=== PATIENT | male | born 1965 | race Caucasian/White ===

== ENCOUNTER 2019-08-18 11:19 | Emergency (ER) | payer OTHER ==
--- NOTE | 2019-08-18 13:12 | EDM.PDOC ---
ED HPI GENERAL MEDICAL PROBLEM - General Chief Complaint: Lower Extremity Injury/Pain Stated Complaint: HURT BOTH ANKLES Time Seen by Provider: 08/18/19 13:07 Source of Information: Reports: Patient History Limitations: Reports: No Limitations - History of Present Illness INITIAL COMMENTS - FREE TEXT/NARRATIVE: This 54 year old is admitted to the ED with a chief complaint of injuring his left ankle and foot while getting out of a truck. He states that because he has been shifting the weight to his right leg his right ankle also. He denies injury to his right ankle of foot. He denies any other symptoms at this time. Onset: Gradual Location: Reports: Lower Extremity, Left Severity: Mild Bilateral Ankles Pain Score (Numeric/FACES): 8 - Related Data Allergies Allergy/AdvReac Type Severity Reaction Status Date / Time No Known Allergies Allergy Verified 08/18/19 12:38 Home Meds: Home Meds Ibuprofen [Motrin] 600 mg PO Q8H PRN 5 Days #15 tab 08/18/19 [Rx] Past Medical History Gastrointestinal History: Reports: Cirrhosis Social & Family History - Family History Family Medical History: Unobtainable - Tobacco Use Smoking Status *Q: Never Smoker - Recreational Drug Use Recreational Drug Use: No Review of Systems - Review of Systems Review Of Systems: See Below Constitutional: Reports: No Symptoms Eyes: Reports: No Symptoms Ears: Reports: No Symptoms Nose: Reports: No Symptoms Mouth/Throat: Reports: No Symptoms Respiratory: Reports: No Symptoms Cardiovascular: Reports: No Symptoms GI/Abdominal: Reports: No Symptoms Genitourinary: Reports: No Symptoms Musculoskeletal: Reports: Other (left ankle and foot pain secondary to fall 10 days ago) Neurological: Reports: No Symptoms ED EXAM, GENERAL - Physical Exam Exam: See Below Exam Limited By: No Limitations General Appearance: Alert, WD/WN, No Apparent Distress Ears: Normal External Exam, Normal Canal, Hearing Grossly Normal, Normal TMs Ear Exam: Bilateral Ear: Auricle Normal, Canal Normal, TM normal Nose: Normal Inspection, Normal Mucosa, No Blood Throat/Mouth: Normal Inspection, Normal Lips, Normal Teeth, Normal Gums, Normal Oropharynx, Normal Voice, No Airway Compromise Head: Atraumatic, Normocephalic Neck: Normal Inspection, Supple, Non-Tender, Full Range of Motion Respiratory/Chest: No Respiratory Distress, Lungs Clear, Normal Breath Sounds, No Accessory Muscle Use, Chest Non-Tender Cardiovascular: Normal Peripheral Pulses, Regular Rate, Rhythm, No Edema, No Gallop, No JVD, No Murmur, No Rub Peripheral Pulses: 4+: Dorsalis Pedis (L), Dorsalis Pedis (R) GI/Abdominal: Normal Bowel Sounds, Soft, Non-Tender, No Organomegaly, No Distention, No Abnormal Bruit, No Mass (Male) Exam: Deferred Rectal (Males) Exam: Deferred Back Exam: Normal Inspection, Full Range of Motion, NT Extremities: Normal Inspection (very little swelling of either ankles or feet.) , Limited Range of Motion (both ankles left greater than the right. Also complains of pain with movement of the left foot on the volar aspects.). No: Slow Capillary Refill, Joint Swelling Neurological: Alert, Oriented, CN II-XII Intact, Normal Gait, Normal Reflexes Psychiatric: Normal Affect, Normal Mood Skin Exam: Warm, Dry, Intact, Normal Color, No Rash Course - Vital Signs Text/Narrative:: I reviewed all of the patients x-rays and were negative for any acute fractures. He will be discharged with appropriate follow up on crutches. The patient agrees with the discharge plan. Last Recorded V/S: Last Vital Signs Temp 98.0 F 08/18/19 12:39 Pulse 96 08/18/19 12:39 Resp 16 08/18/19 12:39 BP 134/75 08/18/19 12:39 Pulse Ox 96 08/18/19 12:39 Departure - Departure Time of Disposition: 14:24 Disposition: Home, Self-Care 01 Condition: Good Clinical Impression: Sprain of ankle, left Qualifiers: Encounter type: initial encounter Involved ligament of ankle: unspecified ligament Qualified Code(s): S93.402A - Sprain of unspecified ligament of left ankle, initial encounter - Discharge Information *PRESCRIPTION DRUG MONITORING PROGRAM REVIEWED*: Yes *COPY OF PRESCRIPTION DRUG MONITORING REPORT IN PATIENT ROBERT: Yes Referrals: Nadine Pardo NP [Primary Care Provider] - Forms: ED Department Discharge, ED Return to Work/School Form Additional Instructions: Take all medications as directed. Follow up with your PCP as scheduled for tomorrow. Apply moist heat to the affected ankles and feet for the next two days (30 minutes on and one hour off while awake). Crutch walk for comfort over the next three to four days. No work for the next two days. Return to the ED if your condition gets worse or should you have any questions or concerns. The following information is given to patients seen in the emergency department who are being discharged to home. This information is to outline your options for follow-up care. We provide all patients seen in our emergency department with a follow-up referral. The need for follow-up, as well as the timing and circumstances, are variable depending upon the specifics of your emergency department visit. If you don't have a primary care physician on staff, we will provide you with a referral. We always advise you to contact your personal physician following an emergency department visit to inform them of the circumstance of the visit and for follow-up with them and/or the need for any referrals to a consulting specialist. The emergency department will also refer you to a specialist when appropriate. This referral assures that you have the opportunity for follow-up care with a specialist. All of these measure are taken in an effort to provide you with optimal care, which includes your follow-up. Under all circumstances we always encourage you to contact your private physician who remains a resource for coordinating your care. When calling for follow-up care, please make the office aware that this follow-up is from your recent emergency room visit. If for any reason you are refused follow-up, please contact the [facility] Emergency Department at and asked to speak to the emergency department charge nurse. Sepsis Event Note - Evaluation Sepsis Screening Result: No Definite Risk - Focused Exam Vital Signs: Vital Signs Temp Pulse Resp BP Pulse Ox 08/18/19 12:39 98.0 F 96 16 134/75 96 Date Exam was Performed: 08/18/19 Time Exam was Performed: 14:12
--- NOTE | 2019-08-18 13:54 | CR ---
Left ankle: 2 views left ankle were obtained. Comparison: No previous study. Well-corticated bony density is noted off the inferior fibula compatible with old ununited avulsion injury. Ankle mortise is symmetric. No acute fracture or other abnormality is appreciated. Impression: 1. 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 2. Nothing acute is appreciated on 2 view left ankle exam. Diagnostic code #2 This report was dictated in [place] Standard Time
--- NOTE | 2019-08-18 13:54 | CR ---
Left foot: 2 views of the left foot were obtained. Comparison: No previous left foot exam. No fracture, dislocation or other bony abnormality is seen. Impression: 1. No abnormality is identified on 2 view left foot exam. Diagnostic code #1 This report was dictated in [place] Standard Time
--- NOTE | 2019-08-18 13:54 | CR ---
Right foot: 2 views of the right foot were obtained. Comparison: No prior foot exam. Joint spaces are preserved. No discrete fracture, dislocation or other bony abnormality is appreciated. Impression: 1. No abnormality is appreciated on 2 view right foot exam. Diagnostic code #1 This report was dictated in [place] Standard Time
--- NOTE | 2019-08-18 13:54 | CR ---
Right ankle: 2 views of the right ankle were obtained. Comparison: No previous ankle study. Ankle mortise is symmetric. No fracture, dislocation or other bony abnormality is seen. Impression: 1. No abnormality is seen on 2 view right ankle exam. Diagnostic code #1 This report was dictated in [place] Standard Time
[2019-08-18] MEDS ORDERED: Ibuprofen 600 MG Tab PO ONE (14:22)
== END 2019-08-18 14:49 | disposition home or self-care (01) ==
LOC: MW.ED 11:19
DX: S93.402A Sprain of unspecified ligament of left ankle, initial encounter (principal); X58.XXXA Exposure to other specified factors, initial encounter
CPT/HCPCS: 73600; 73620; 99283; A9270